=== PATIENT | male | born 1975 | race Caucasian/White ===

== ENCOUNTER 2024-04-10 17:10 | Emergency (ER) | payer BC, SELFPAY ==
[2024-04-10 17:11] VITALS: BP 144/96
--- NOTE | 2024-04-10 17:57 | ED.GENMED ---
History of Present Illness
General
Chief Complaint: Fall
Source: patient
Exam Limitations: none
Time Seen by Provider: 04/10/24 17:46
Nursing documentation reviewed up to this point in time: agreed with
Travel History
Have you had any contact with someone who has COVID-19?: No
Do you have any symptoms of coronavirus? Fever > 100 degrees, chills, cough, shortness of breath, sore throat, loss of taste or smell, muscle aches, or headache?: No
History of Present Illness
History of Present Illness:
48 yo female presents emergency room complaining of left upper quadrant abdominal pain after hitting a steel throttle handle on his tractor while getting off of it on . He has continued pain.
Past History
Past History
ED Past Medical History: GERD and Other
ED Past Surgical History: None and Orthopedic
Social History
Tobacco: Non-smoker
Alcohol: Occasional
Drug: Marijuana
Personal:
Living: with family
Employment: Employed
Family History
Family History: Other (Noncontributory)
Review of Systems
Review of Systems
Allergies reviewed?: Yes
All Other Systems: Not applicable
Constitutional: Reports no symptoms
EENT: Reports no symptoms
Respiratory: Reports no symptoms
Cardiac: Reports no symptoms
ABD/GI: Reports abdominal pain
: Reports no symptoms
Musculoskeletal: Reports no symptoms
Skin: Reports no symptoms
Neurological: Reports no symptoms
Endocrine: Reports no symptoms
Hematologic/Lymphatic: Reports no symptoms
Psychiatric: Reports no symptoms
Phy Exam
Physical Exam
Physical Exam:
Physical Exam
General: no apparent distress, not acutely ill
Neck: supple. no meningeal signs. normal posterior pharynx
Heart: s1/s2 regular rate and rhythm, no murmur. equal radial
pulses.
HEENT: Pupils equal round reactive to light, EOMI
Lungs: no acute respiratory distress. clear bilaterally
Abdomen: normal bowel sounds. Left upper quadrant abdominal tenderness, no rebound or guarding. No CVAT
Neuro: alert and oriented. no focal neurological deficits cranial nerves II through XII intact
Skin: no rash
Psychiatric: well kept. interactive and cooperative
Extremities: no edema. no calf tenderness. negative homans. good distal pulses
Course
Orders/Labs/Results
Orders:
Orders
04/10/24 17:53
IV Insert/Care/Rem.- Treatment PRN
04/10/24 17:55
CT Abd/pel W Iv Cont (trauma) Urgent
Comment:
Reason For Exam: hit in LUQ by tractor handle 5 days ago, pain
04/10/24 17:59
Complete Blood Count/With Diff Urgent
Comprehensive Metabolic Panel Urgent
Lipase Urgent
Abnormal Lab Results
04/10/24
17:59
RBC 4.35 L 10^6/uL
(4.70-6.10)
Hct 38.1 L %
(39.0-52.0)
MCH 31.3 H pg
(27.0-31.0)
BUN 21 H mg/dl
(9-20)
04/10/24 17:59
04/10/24 17:59
Vital Signs
Initial and Last Documented VS:
Initial Vital Signs
Temp Pulse Resp BP Pulse Ox
98.3 F 79 20 144/96 98
04/10/24 17:11 04/10/24 17:11 04/10/24 17:11 04/10/24 17:11 04/10/24 17:11
Last Documented Vital Signs
Temp Pulse Resp BP Pulse Ox
98.3 F 79 20 144/96 98
04/10/24 17:11 04/10/24 17:11 04/10/24 17:11 04/10/24 17:11 04/10/24 17:11
MDM/Problems Addressed
Differential Diagnosis Includes:
Solid organ injury, pneumothorax
MDM/Problems Addressed:
48-year-old male with blunt abdominal trauma, no significant injury noted. CT abdomen pelvis no acute findings. Do not suspect pneumothorax. Stable for discharge.
*Radiology
Radiology exam reviewed: radiology read reviewed (CT abdomen pelvis no acute finding)
*Pulse Oximetry
Patient hypoxic: no
*EKG
Interpreted by ED Provider?: NA
*Cork Mixer Interpretation
Rate: Cork Mixer- N/A
*Critical Care Note
Total Time (30-74mins, 75-104mins- exclusive of procedures): Not Applicable
Patient Management
Social determinants of health affecting care: Living situation
Escalation/DeEscalation of care consider admission/obs:
Admit not indicated
ED Attending Note
-
Portions of this chart may have been created with voice recognition software.� Occasional wrong word or��sound alike� substitutions may have occurred due to the inherent limitations of voice recognition software.
Discharge Plan
Departure
Patient Disposition: Home (Routine Discharge)
Date of Disposition: 04/10/24
Time of Disposition: 19:26
Patient with high blood pressure during this ER visit?: Yes
Condition: Good
Discharge Problem:
Abdominal contusion
Instructions: Blunt Abdominal Trauma ED, BLOOD PRESSURE
Prescriptions:
No Action
paroxetine HCl 10 mg Tablet
10 mg PO DAILY
Albuterol Inhaler
2 puff inhalation PRN PRN (Reason: allergies)
Medical Marijuana
1 dose inhalation PRN PRN (Reason: pain)
loratadine [Claritin] 10 mg Tablet
10 mg PO DAILY PRN (Reason: allergies)
Referrals:
Rogelio Peacock MD [Family Provider] - Call in 1-3 days for appt
Interventions
Interventions:
*Risk Screen - Suicide Last Done: 04/10/24 17:11
*General Assessment Last Done: 04/10/24 17:11
*Neglect/Abuse Screening Last Done: 04/10/24 17:11
ED- Fall Risk Assessment Last Done: 04/10/24 18:03
AR-Ycbfed-Wtsmuitvzs Assessment Last Done: 04/10/24 18:03
ED-Musculoskeletal Assessment Last Done: 04/10/24 18:03
ED- Neurological Assessment Last Done: 04/10/24 18:03
ED-Skin Assessment Last Done: 04/10/24 18:03
Discharge Date and Time
Print Language: PUERTO RICAN
[2024-04-10 18:03] VITALS: BMI 25.5
[2024-04-10 18:07] LABS: % Basophils 0.7 % (0-2); % Eosinophils 0.4 % (0-6); % Immature Granulocytes 0.2 % (0-0.5); % Monocytes 6.8 % (1.7-9.3); % Neutrophils 64.9 % (42.2-75.2); Absolute Basophils 0.1 10^3/uL (0-0.2); Absolute Lymphocytes 2.4 10^3/uL (1.2-3.4); Absolute Monocytes 0.6 10^3/uL (0.1-0.6); Absolute Neutrophils 5.8 10^3/uL (1.4-6.5); Hematocrit 38.1 % (39.0-52.0); Hemoglobin 13.6 g/dL (13.0-18.0); Mean Corp Hgb Conc. 35.7 g/dL (33.0-37.0); Mean Corpuscular Hgb 31.3 pg (27.0-31.0); Mean Corpuscular Volume 87.6 fL (80.0-94.0); Mean Platelet Volume 9.8 fL (7.4-10.4); Nucleated Red Blood Cells % 0 % (-); Platelet Count 224 10^3/uL (130-400); Red Blood Cell Count 4.35 10^6/uL (4.70-6.10); Red Cell Dist. Width 12.9 % (11.5-14.5); White Blood Cell Count 8.9 10^3/uL (4.8-10.8)
[2024-04-10 18:23] LABS: ALT (SGPT) 23 U/L (0-50); AST (SGOT) 25 U/L (17-59); Albumin 4.2 g/dl (3.5-5.0); Alkaline Phosphatase 44 U/L (38-126); Blood Urea Nitrogen 21 mg/dl (9-20); Calcium 9.8 mg/dl (8.4-10.2); Carbon Dioxide 27 mmol/L (22-30); Chloride 102 mmol/L (98-107); Estimated Creatinine Clearance 92 ml/min; Glucose 94 mg/dl (70-99); Lipase 45 U/L (23-300); Potassium 3.9 mmol/L (3.5-5.1); Sodium 136 mmol/L (135-145); Total Bilirubin 0.7 mg/dl (0.2-1.3); Total Protein 6.6 g/dl (6.3-8.2); eGFR > 60.00
== END 2024-04-10 19:51 | disposition home or self-care (01) ==
LOC: EMR 17:10
PROVIDERS: EMERGENCY PHYSICIAN Emergency Medicine; FAMILY PHYSICIAN Family Medicine
DX: S30.1XXA Contusion of abdominal wall, initial encounter (principal); X58.XXXA Exposure to other specified factors, initial encounter; K21.9 Gastro-esophageal reflux disease without esophagitis
CPT/HCPCS: 99284; 96374; 74177; 80053; 83690; 85025; Q9967

== ENCOUNTER → 2025-02-27 14:44 | Outpatient (REF) | payer BC, SELFPAY | LOC: DHSLP 14:44 | PROVIDERS: ATTENDING PHYSICIAN Family Medicine | DX: G47.33 Obstructive sleep apnea (adult) (pediatric) (principal) | CPT/HCPCS: 95800 ==

== ENCOUNTER 2025-09-06 14:26 | Inpatient (IN) | payer BC, SELFPAY ==
[2025-09-06 10:56] VITALS: BP 174/96
--- NOTE | 2025-09-06 11:55 | ED.GENMED ---
History of Present Illness
<CAESAR Rock - Last Filed: 09/06/25 13:37>
General
Chief Complaint: Skin Problem
Source: patient
Exam Limitations: none
Time Seen by Provider: 09/06/25 11:32
Nursing documentation reviewed up to this point in time: agreed with
History of Present Illness
History of Present Illness:
Patient is a 49-year-old male sent by [facility] orthopedics for admission. Patient has been doing a lot of work on his floors and kneeling and on Tuesday evening 4 days ago started having some discomfort and later that day had some swelling. He then
had some redness. He was seen by urgent care Tuesday and was placed on doxycycline. He has taken several doses of doxycycline including this morning. He was seen by [facility] physician veterinary assistant today and recommended to come to the ER for IV
antibiotics. He denies any fevers. He has had some pain to the knee but is able to bear weight.
Past History
<CAESAR Rock - Last Filed: 09/06/25 13:37>
Past History
ED Past Medical History: GERD and Other
ED Past Surgical History: None and Orthopedic
Social History
Tobacco: Non-smoker
Alcohol: Occasional
Drug: Marijuana
Personal:
Living: with family
Employment: Employed
Family History
Family History: Other (Noncontributory)
Phy Exam
<CAESAR Rock - Last Filed: 09/06/25 13:37>
General Physical Exam
General Presentation: well appearing
General age: appears stated age
General Skin: warm and dry
General Habitus: normal
General Mental: alert
General Hydration: appears well hydrated
Cardiovascular Exam
Cardiovascular Exam: regular rate/rhythm, no murmur and normal peripheral pulses
Pulmonary Exam
Pulmonary Exam: lungs clear and no respiratory distress
Neurological Exam
Neurological Exam: alert and oriented x3
Musculoskeletal Exam
Musculoskeletal Exam: other (Right lower extremity with strong pulses right to right anterior knee scattered to the lower leg as the right lateral leg distal lateral thigh; mild swelling to anterior knee however good ROM )
Skin Exam
Skin Exam: normal color and warm/dry
Psychiatric Exam
Psychiatric Exam: normal mood/affect
Course
<CAESAR Rock - Last Filed: 09/06/25 13:37>
Orders/Labs/Results
Orders:
Orders
09/06/25 12:13
IV Insert/Care/Rem.- Treatment PRN
09/06/25 12:21
Complete Blood Count/With Diff Urgent
Comprehensive Metabolic Panel Urgent
Blood Culture Q30M
RIYA Source: Blood/Venous
Specimen Description:
09/06/25 12:22
Blood Culture Q30M
RIYA Source: Blood/Venous
Specimen Description:
09/06/25 12:34
Vancomycin [Vancocin] 2,000 mg 0.9% Sodium Chloride 500 ml [Nss] 500 ml IV NOW
Abnormal Lab Results
09/06/25
12:21
WBC 10.9 H 10^3/uL
(4.8-10.8)
RBC 4.28 L 10^6/uL
(4.70-6.10)
Hgb 12.9 L g/dL
(13.0-18.0)
Hct 38.1 L %
(39.0-52.0)
Abs Immat Gran (auto) 0.1 H 10^3/uL
(0-0.05)
Absolute Neuts (auto) 8.5 H 10^3/uL
(1.4-6.5)
Absolute Monos (auto) 1.0 H 10^3/uL
(0.1-0.6)
Neutrophils % 77.9 H %
(42.2-75.2)
Lymphocytes % 11.3 L %
(20.5-51.1)
Glucose 103 H mg/dl
(70-99)
09/06/25 12:21
09/06/25 12:21
Vital Signs
Initial and Last Documented VS:
Initial Vital Signs
Temp Pulse Resp BP Pulse Ox
98.3 F 104 16 174/96 99
09/06/25 10:56 09/06/25 10:56 09/06/25 10:56 09/06/25 10:56 09/06/25 10:56
Last Documented Vital Signs
Temp Pulse Resp BP Pulse Ox
98.3 F 104 16 174/96 99
09/06/25 10:56 09/06/25 10:56 09/06/25 10:56 09/06/25 10:56 09/06/25 12:03
Design Maintenance Engineer consulted with Physician
Design Maintenance Engineer consulted with physician?: Yes
Name of Physician Consulted: bianka
<Michael Spaulding, DO - Last Filed: 09/06/25 13:14>
Orders/Labs/Results
Orders:
Orders
09/06/25 12:13
IV Insert/Care/Rem.- Treatment PRN
09/06/25 12:21
Complete Blood Count/With Diff Urgent
Comprehensive Metabolic Panel Urgent
Blood Culture Q30M
RIYA Source: Blood/Venous
Specimen Description:
09/06/25 12:22
Blood Culture Q30M
RIYA Source: Blood/Venous
Specimen Description:
09/06/25 12:34
Vancomycin [Vancocin] 2,000 mg 0.9% Sodium Chloride 500 ml [Nss] 500 ml IV NOW
Abnormal Lab Results
09/06/25
12:21
WBC 10.9 H 10^3/uL
(4.8-10.8)
RBC 4.28 L 10^6/uL
(4.70-6.10)
Hgb 12.9 L g/dL
(13.0-18.0)
Hct 38.1 L %
(39.0-52.0)
Abs Immat Gran (auto) 0.1 H 10^3/uL
(0-0.05)
Absolute Neuts (auto) 8.5 H 10^3/uL
(1.4-6.5)
Absolute Monos (auto) 1.0 H 10^3/uL
(0.1-0.6)
Neutrophils % 77.9 H %
(42.2-75.2)
Lymphocytes % 11.3 L %
(20.5-51.1)
Glucose 103 H mg/dl
(70-99)
09/06/25 12:21
09/06/25 12:21
Vital Signs
Initial and Last Documented VS:
Initial Vital Signs
Temp Pulse Resp BP Pulse Ox
98.3 F 104 16 174/96 99
09/06/25 10:56 09/06/25 10:56 09/06/25 10:56 09/06/25 10:56 09/06/25 10:56
Last Documented Vital Signs
Temp Pulse Resp BP Pulse Ox
98.3 F 104 16 174/96 99
09/06/25 10:56 09/06/25 10:56 09/06/25 10:56 09/06/25 10:56 09/06/25 12:03
<CAESAR Rock - Last Filed: 09/06/25 13:37>
MDM/Problems Addressed
Differential Diagnosis Includes:
Not limited to cellulitis, less likely septic arthritis
MDM/Problems Addressed:
Symptoms are consistent with cellulitis. Patient has very good range of motion to the right knee. Likely cellulitis and not septic arthritis. Patient is afebrile white count 10.9. Patient has been on doxycycline. Will add vancomycin however
with cellulitis would recommend admission. Case reviewed ED physician who evaluated patient.
Patient was sent by [facility] for admission and therefore I did speak with [facility] on-call Dr. Ivey to make him aware patient is being admitted.
<CAESAR Rock - Last Filed: 09/06/25 13:37>
*Pulse Oximetry
SaO2: 99
Oxygen Mode of Delivery: Room air
Patient hypoxic: no
*Critical Care Note
Total Time (30-74mins, 75-104mins- exclusive of procedures): Not Applicable
ED Attending Note
<CAESAR Rock - Last Filed: 09/06/25 13:37>
-
Portions of this chart may have been created with voice recognition software.� Occasional wrong word or��sound alike� substitutions may have occurred due to the inherent limitations of voice recognition software.
<Michael Spaulding DO - Last Filed: 09/06/25 13:14>
ED Attending Note
Patient seen and examined by attending physician: Yes
I performed the substantive portion of visit, reviewed & personally made and approve the management plan that is documented in note by myself or JAVED.: Yes
ED Attending Note:
I have seen and evaluated the patient with a [id number] encounter. I have spoken to the advance practicer provider and involved in the medical history, the physical exam, medical decision making.
Evaluation and management service: agree unless noted differently below.
Results interpretation: agree unless noted differently below.
Focused HPI: 49-year-old male presenting for evaluation of worsening redness of his right leg. Patient was seen in urgent care and started on doxycycline for presumed cellulitis and prepatellar bursitis. Patient has been on his knees when he has
been remodeling his house recently. He does acknowledge that the actual swelling and pain have improved but the redness has gotten worse
Physical exam: Swelling and tenderness to right prepatellar bursa. Cellulitic changes noted from mid thigh all the way down to mid calf overlying the knee. No micromotion tenderness of knee
Medical Decision Making: Given the worsening cellulitic changes despite antibiotic use at home, will admit for IV antibiotics. This appears to be more cellulitis and prepatellar bursitis rather than septic joint
Discharge Plan
Departure
Patient Disposition: Admit
Date of Disposition: 09/06/25
Time of Disposition: 13:26
Admit to: Med/Surg
Admit to doctor: [email or web address]
Presentation/result/management discussed w/ accepting MD/DO: Hospitalist
Patient with high blood pressure during this ER visit?: Yes
Condition: Fair
Covid-19: Not Applicable
Discharge Problem:
cellulitis right leg
Prescriptions:
No Action
paroxetine HCl 10 mg Tablet
10 mg PO DAILY
Medical Marijuana
1 dose inhalation TIDPRN PRN (Reason: pain)
albuterol sulfate 90 mcg/actuation HFA aerosol inhaler
2 puff INHALATION Q4HPRN PRN (Reason: shortness of breath)
valsartan 160 mg tablet
160 mg PO DAILY
Referrals:
Mahnaz Matta DO [Family Provider, Family Practice]
Interventions
Interventions:
*Risk Screen - Suicide Last Done: 09/06/25 10:56
*General Assessment Last Done: 09/06/25 10:56
ED-Skin Assessment Last Done: 09/06/25 12:20
Discharge Date and Time
Print Language: FRISIAN
[2025-09-06 12:20] VITALS: BMI 25.4
[2025-09-06 12:35] LABS: Hematocrit 38.1 % (39.0-52.0); Hemoglobin 12.9 g/dL (13.0-18.0); Mean Corp Hgb Conc. 33.9 g/dL (33.0-37.0); Mean Corpuscular Volume 89.0 fL (80.0-94.0); Nucleated Red Blood Cells % 0 % (-); Platelet Count 251 10^3/uL (130-400); Red Cell Dist. Width 12.4 % (11.5-14.5)
[2025-09-06 12:49] LABS: ALT (SGPT) 21 U/L (0-50); AST (SGOT) 20 U/L (17-59); Albumin 4.0 g/dl (3.5-5.0); Alkaline Phosphatase 52 U/L (38-126); Blood Urea Nitrogen 14 mg/dl (9-20); Calcium 9.2 mg/dl (8.4-10.2); Carbon Dioxide 26 mmol/L (22-30); Chloride 105 mmol/L (98-107); Estimated Creatinine Clearance 113 ml/min; Glucose 103 mg/dl (70-99); Potassium 4.2 mmol/L (3.5-5.1); Sodium 138 mmol/L (135-145); Total Protein 6.4 g/dl (6.3-8.2); eGFR > 60.00
[2025-09-06] MEDS: VANCOCIN 540 MG IV (13:17)
--- NOTE | 2025-09-06 13:27 | W.PN.UPDATE ---
Update Note
Progress Note Update
This note serves as an addendum to the H&P by PGY3
HPI�
49M Non - smoker , on Medical Marijuana , HX HTN HX GERD , sent from [facility] orthopedics
- has been doing a lot of work on his floors and kneeling
- on Tuesday evening 4 days ago started having some discomfort and later that day had some swelling and redness.
- seen by urgent care Tuesday and was placed on doxycycline.
- s/p several doses of doxycycline including this morning.
- some pain to the knee but is able to bear weight.
He was seen by [facility] physician insurance administrative assistant today and recommended to come to the ER for IV antibiotics.
He denies any fevers.
Relevant VS
Temp Pulse Resp BP Pulse Ox
98.3 F 104 16 174/96 99
09/06/25 10:56 09/06/25 10:56 09/06/25 10:56 09/06/25 10:56 09/06/25 12:03
PE
Gen: NAD, Not toxic
HEENT: anciteric
Neck: supple
Lungs:CTA
Cor: Sinus tachy
Derm & MS:
R Knee - warm , red, tender Rt knee - FROM Knee Joint
Relevant Data�
09/06/25
12:21
WBC 10.9 H
Hgb 12.9 L
MCV 89.0
09/06/25
12:21
Creatinine 0.8
eGFR > 60.00
NO PRIOR hospitalist admission:
ASSESSMENT & PLAN
Pending Rx reconciliation
Presumed Sepsis - R LLEX cellulitis + suspect subtle SIRS (HR > 90, WCC > 10)
- NEG MRSA screen in 2021
- Repeat MRSA screen
- received IV Vancomycin at ER
- will switch to IV Cefazolin 2 gm q8h
- Tylenol PRN
Hi systolic BP
Bn HTN
- cont. Valsartan daily
- Observe BP
Depression
- florentin control
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
DVT Px: LMEH
Full code
IP MS
--- NOTE | 2025-09-06 13:49 | HPS.HSE ---
Addendum entered and electronically signed by Yoandy Huggins MD 09/06/25 14:17:
I saw and examined the patient.
The PGY3 note was reviewed and I agree with the note.
Comment: refer to the update note
Original Note:
Family Physician
-
Family Physician: Mahnaz Matta
Chief Complaint
-
Right knee pain, swelling x 5 days.
History of Present Illness
49-year-old male with past medical history significant for hypertension, GERD, L5-S1 fusion, bilateral hip arthritis presents to the emergency room for evaluation of right knee swelling and pain. His right knee pain and swelling started on Tuesday
in the a.m., patient reports that he has been doing a lot of floor work in his house lately by kneeling down and initially his pain, swelling and discomfort was localized only to his knee. On Tuesday morning patient was not able to bear any weight
on his leg which prompted an urgent care visit. Patient was diagnosed with cellulitis in the urgent care, was given doxycycline and currently patient is s/p 7 doses. He is weightbearing improved subsequently into the following days but his redness
and swelling extended beyond his knee into his calf and upper thigh. [id number]-tek-qtufbly ibuprofen was of not much help which prompted the patient to visit his orthopedics who recommended the patient to go to the ER.
He denies having fevers, chills, sick contacts, history of diabetes or family history of diabetes.
Medical History
Past Medical History
Past Medical History: Reports GERD, HTN and Other (Osteoarthritis of bilateral hips.)
Past Surgical History: Reports Other (L5-S1 fusion, tendon repairs in the elbows and hands)
Social History
Tobacco: Non-smoker
Alcohol: Occasional (About 2 glasses of wine/cocktail a week.)
Drug: Marijuana (Medical marijuana for pain.)
Personal:
Living: With Family
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
Family History
Family History: Not pertinent
Allergies / Home Medications
Allergies reflects when Allergies were last updated in [employer].
Home Medications with original date entered in [employer]
Allergy/Medication List:
Allergies
Allergy/AdvReac Type Severity Reaction Status Date / Time
No Known Drug Allergies Allergy Unknown Verified 09/06/25 10:56
Home Medications
Medical Marijuana 1 dose inhalation TIDPRN PRN pain 09/07/22
paroxetine HCl 10 mg tablet 10 mg PO DAILY Depression 09/07/22
albuterol sulfate 90 mcg/actuation aerosol inhaler 2 puff inhalation Q4HPRN PRN shortness of breath 09/06/25
valsartan 160 mg tablet 160 mg PO DAILY daily 09/06/25
Review of Systems
-
Constitutional: Reports No Symptoms
EENT: Reports No Symptoms
Respiratory: Reports No Symptoms
Cardiac: Reports No Symptoms
Abdomen/GI: Reports No Symptoms
: Reports No Symptoms
Musculoskeletal: Reports Joint Pain, Joint Swelling, Edema and Other (Redness and hotness.)
Skin: Reports Other (Redness extending into the right thigh and right calf.)
Neurological: Reports No Symptoms
Endocrine: Reports No Symptoms
Hematologic/Lymphatic: Reports No Symptoms
Psych: Reports No Symptoms
Physical Exam
Vital Signs
Vital Signs
Temp Pulse Resp BP Pulse Ox
98.3 F 104 16 174/96 99
09/06/25 10:56 09/06/25 10:56 09/06/25 10:56 09/06/25 10:56 09/06/25 12:03
Physical Exam
General: Comfortable and Conversant
HEENT: Moist mucous membranes and PERRLA
Respiratory: Clear; No Wheezes, Rales, Rhonchi or Crackles
Cardiac: S1/S2 and Regular Rhythm; No Murmur, Rub or Gallop
GI: Soft, Non Tender, Non Distended and Normal Bowel Sounds
Genito-urinary: Deferred by me
Musculoskeletal: No Clubbing, No Cyanosis, Edema, Right Lower Extremity (Erythema, local rise of temperature, edema noted in the right knee extending about 4 cm superiorly and 15 to 18 cm inferiorly.) and Other (Range of motion in the right
knee-limited flexion and internal rotation primarily from pain, both active and passive.)
Skin: Warm
Neuro: AO x 3 and No Motor Deficits
Psych: Calm
Laboratory Results
-
09/06/25 12:21
09/06/25 12:21
Laboratory Results
Total Bilirubin 0.6 mg/dl (0.2-1.3) 09/06/25 12:21
AST 20 U/L (17-59) 09/06/25 12:21
ALT 21 U/L (0-50) 09/06/25 12:21
Alkaline Phosphatase 52 U/L (38-126) 09/06/25 12:21
Data Reviewed
-
Lab Data: Labs Reviewed by me, Discussed with Physician and Discussed with Patient
Impression/Plan
-
IMPRESSION: 49-year-old male with PMHx significant for hypertension, GERD presents to the ER for evaluation of redness and swelling in his right knee. He is diagnosed to be in sepsis secondary to cellulitis.
PLAN:
# Sepsis -
secondary to cellulitis
Tachycardia, hypertension, elevated WBC count, afebrile.
S/p 7 doses of doxycycline in the outpatient.
S/p IV fluids, vancomycin in the ER.
Switch to Ancef, repeat MRSA swab.
Monitor for improvement-WBC count as well as the cellulitis.
# Anxiety/depression-
Continue paroxetine.
# Chronic pain-
Continue medical marijuana.
# DVT prophylaxis-
Lovenox.
# Diet-
Cholesterol-lowering diet.
# CODE STATUS-
Full code.
[2025-09-06 13:54] VITALS: BP 134/85
[2025-09-06 15:14] VITALS: BMI 25.0
[2025-09-06 15:38] VITALS: BP 142/88
--- NOTE | 2025-09-06 15:52 | PTOTSP ---
Therapist spoke with the patient, who notes he is independent with mobility, and pain is actually improved since Tuesday, able to weightbear without difficulty. Patient admits he needs to use knee pads more regularly when working and plans to use
them moving forward. Patient denies the need for PT at this time and is aware our services are available if needed. PT will sign off.
--- NOTE | 2025-09-06 15:53 | PTCARENOTE ---
Received pt from ER via stretcher, accompanied by ER staff. Pt AAO x3, JETER well, ambulatory to room, no c/o weakness. VSS. Pt has +1 edema of Rt knee/lower leg with reddened skin. On room air- pulse ox 97%, no SOB noted. Abd soft, rounded, to
start chol lowering diet. Pt voided in BR upon arrival to room. Rt knee/lower leg reddened, no c/odsicomfort; RLE elevated on pillow. Oriented to 4East, currently resting comfortably. Will continue to monitor.
[2025-09-06] MEDS: FLUSH (NSS) 1 FLUSH IV (16:13)
[2025-09-06] MEDS: ANCEF 10 IV (16:13)
[2025-09-06] MEDS: LOVENOX 40 MG SC (18:09)
[2025-09-06 23:50] VITALS: BP 138/80
[2025-09-07] MEDS: FLUSH (NSS) 1 FLUSH IV (00:18)
[2025-09-07] MEDS: ANCEF 10 IV ×3 (00:18→17:18)
[2025-09-07 07:30] VITALS: BP 126/78
[2025-09-07] MEDS: PAXIL 10 MG PO (08:27)
[2025-09-07] MEDS: DIOVAN 160 MG PO (08:27)
[2025-09-07] MEDS: FLUSH (NSS) 2 FLUSH IV (08:28)
[2025-09-07 08:55] LABS: Hematocrit 41.0 % (39.0-52.0); Hemoglobin 13.4 g/dL (13.0-18.0); Mean Corp Hgb Conc. 32.7 g/dL (33.0-37.0); Mean Corpuscular Volume 91.3 fL (80.0-94.0); Nucleated Red Blood Cells % 0 % (-); Platelet Count 274 10^3/uL (130-400); Red Cell Dist. Width 12.3 % (11.5-14.5)
[2025-09-07 09:24] LABS: Blood Urea Nitrogen 14 mg/dl (9-20); Calcium 9.4 mg/dl (8.4-10.2); Carbon Dioxide 28 mmol/L (22-30); Chloride 103 mmol/L (98-107); Estimated Creatinine Clearance 113 ml/min; Glucose 94 mg/dl (70-99); Potassium 4.5 mmol/L (3.5-5.1); Sodium 138 mmol/L (135-145); eGFR > 60.00
--- NOTE | 2025-09-07 13:11 | W.PN.UPDATE ---
Update Note
Progress Note Update
HPI: 49-year-old male with PMH significant for hypertension, GERD presented to the ER for evaluation of redness and swelling in his right knee. He was admitted for R knee cellulitis.
A/P:
# Sepsis POA secondary to RLE cellulitis
s/p 7 doses of doxycycline outpatient.
S/p IV fluids, vancomycin in the ER.
Cont current Ancef
RLE redness has improved
# Anxiety/depression
Continue paroxetine.
# Chronic pain
Continue medical marijuana.
DVT prophylaxis- Lovenox SQ .
CODE STATUS- Full code.
--- NOTE | 2025-09-07 13:40 | CM ---
Initial assessment completed with patient who lives with his and 16 y/o son in a 2 story home with no basement, B/B on , 1 step to enter. DELIVERY SPECIALIST patient was independent in ADL's and ambulation, drives, works as a real estate services administrator. Does have crutches
and a SPC in the home. No in-home services. No HC-POA. No VA benefits. No psychiatric hospitalizations. PCP is Dr. Mahnaz Matta. Pharmacy is [facility] on [phone] in [place]. Discharge POC: Anticipate home with no needs. v
[2025-09-07] MEDS: TYLENOL 650 MG PO (13:53)
--- NOTE | 2025-09-07 14:15 | W.PN.HOSP.TC ---
Today's Communication/Plan
-
Continue Ancef
Assessment / Plan
Assessment / Plan
Assessment- 49-year-old male with PMHx significant for hypertension, GERD presents to the ER for evaluation of redness and swelling in his right knee. He is diagnosed to be in sepsis secondary to cellulitis.
Plan-
#Sepsis-
Resolved
Secondary to cellulitis.
#Cellulitis-
Continue Ancef high-dose
MRSA nasal swab negative
WBC count became normal
# Anxiety/depression
continue paroxetine
# Anxiety/depression-
Continue paroxetine.
# Chronic pain-
Continue medical marijuana.
# DVT prophylaxis-
Lovenox.
# Diet-
Cholesterol-lowering diet.
# CODE STATUS-
Full code.
Anticipated Discharge: Today
Subjective/Interval History
-
Date of Service: September 07, 2025
His symptoms are improving, he has minimal redness, and pain.
Objective Data
-
Labs:
Laboratory Results
09/07/25
07:47
WBC 8.4
Hgb 13.4
Hct 41.0
Plt Count 274
Sodium 138
Potassium 4.5
Chloride 103
Carbon Dioxide 28
BUN 14
Creatinine 0.8
Glucose 94
Calcium 9.4
Vital Signs:
Vital Signs
Temp Pulse Resp BP Pulse Ox
98.2 F 68 16 126/78 97
09/07/25 07:30 09/07/25 08:27 09/07/25 07:30 09/07/25 08:27 09/07/25 09:00
I&O
09/06/25 09/07/25 09/08/25
06:59 06:59 06:59
Intake Total 240 / 240
Balance 240 / 240
Review of Systems
-
History Source: Patient
Constitutional: Reports No Symptoms
EENT: Reports No Symptoms Reported
Respiratory: Reports No Symptoms
Abdomen/GI: Reports No Symptoms
Genitourinary: Reports No Symptoms
Musculoskeletal: Reports Joint Pain (Improving)
Skin: Reports Other (Redness, pain, swelling improving)
Neuro: Reports No Symptoms
Endocrine: Reports No Symptoms
Hematologic / Lymphatic: Reports No Symptoms
Allergy / Immunology: Reports No Symptoms
Physical Exam
-
General: No Apparent Distress and Comfortable
HEENT: Atraumatic and Moist Mucous Membranes
Respiratory: Clear to Auscultation; Negative Wheezes, Rales, Rhonchi or Crackles
Cardiac: Regular Rhythm and S1/S2; Negative Murmur, Rub or Gallop
GI: Soft, Nontender, Nondistended and Normal Bowel Sounds
Musculoskeletal: No Clubbing, No Cyanosis, No Edema and Other ((Erythema, local rise of temperature, edema noted in the right knee extending about 2 cm inferiorly)
Skin: Warm
Neuro: AO x 3
Data Reviewed
-
Labs: Labs Reviewed by me, Discussed with Physician and Discussed with Patient
[2025-09-07 15:27] VITALS: BP 153/89
[2025-09-07] MEDS: LOVENOX 40 MG SC (17:17)
[2025-09-07 23:20] VITALS: BP 128/80
[2025-09-08] MEDS: ANCEF 10 IV ×2 (00:24→09:23)
[2025-09-08] MEDS: FLUSH (NSS) 1 FLUSH IV (00:24)
[2025-09-08 08:00] VITALS: BP 135/89
--- NOTE | 2025-09-08 09:14 | W.PN.UPDATE ---
Update Note
Progress Note Update
I saw and evaluated the patient with the residents.
HPI: 49-year-old male with PMH significant for hypertension, GERD presented to the ER for evaluation of redness and swelling in his right knee. He was admitted for R knee cellulitis.
A/P:
# Sepsis POA secondary to RLE cellulitis
s/p 7 doses of doxycycline outpatient.
S/p IV fluids, vancomycin in the ER.
Ancef -> PO Keflex at the time of discharge for a total 14 days
RLE redness has significantly improved
# Anxiety/depression
Continue paroxetine.
# Chronic pain
Continue medical marijuana.
DVT prophylaxis- Lovenox SQ .
CODE STATUS- Full code.
[2025-09-08] MEDS: DIOVAN 160 MG PO (09:22)
[2025-09-08] MEDS: PAXIL 10 MG PO (09:22)
[2025-09-08] MEDS: FLUSH (NSS) 2 FLUSH IV (09:23)
--- NOTE | 2025-09-08 11:34 | W.PN.HOSP.TC ---
Today's Communication/Plan
-
Switch to oral Keflex, plan for discharge.
Assessment / Plan
Assessment / Plan
Assessment- 49-year-old male with PMHx significant for hypertension, GERD presents to the ER for evaluation of redness and swelling in his right knee. He is diagnosed to be in sepsis secondary to cellulitis.
Plan-
#Sepsis-
Resolved
Secondary to cellulitis.
#Cellulitis-
Switch to oral Keflex.
MRSA nasal swab negative
WBC count became normal
# Anxiety/depression
continue paroxetine
# Anxiety/depression-
Continue paroxetine.
# Chronic pain-
Continue medical marijuana.
# DVT prophylaxis-
Lovenox.
# Diet-
Cholesterol-lowering diet.
# CODE STATUS-
Full code.
Anticipated Discharge: Today
Subjective/Interval History
-
Date of Service: September 08, 2025
No complaints.
Objective Data
-
Vital Signs:
Vital Signs
Temp Pulse Resp BP Pulse Ox
97.8 F 94 16 135/89 97
09/08/25 08:00 09/08/25 09:22 09/08/25 08:00 09/08/25 09:22 09/08/25 09:00
I&O
09/07/25 09/08/25 09/09/25
06:59 06:59 06:59
Intake Total 240 / 240 960 / 960
Balance 240 / 240 960 / 960
Review of Systems
-
History Source: Patient
All other systems: Reviewed and negative
Physical Exam
-
General: Comfortable
HEENT: Moist Mucous Membranes
Respiratory: Clear to Auscultation; Negative Wheezes, Rales, Rhonchi or Crackles
Cardiac: Regular Rhythm and S1/S2; Negative Murmur, Rub or Gallop
GI: Soft, Nontender, Nondistended and Normal Bowel Sounds
Musculoskeletal: No Clubbing, No Cyanosis, No Edema and Other (Local rise of temperature, erythema, edema of the right knee resolved.)
Neuro: AO x 3
Psych: Calm
--- NOTE | 2025-09-08 12:16 | W.DCSUMMARY ---
Documented by User: Arti Smyth MD, Resident 09/08/25 12:20
Discharge Summary
Discharge Data
Date of Admission: 09/06/25
Date of Discharge: 09/08/25
-
Pending Results: No
Hospital Course
Assessment - 49-year-old male with PMHx significant for hypertension, GERD presents to the ER for evaluation of redness and swelling in his right knee. He is diagnosed to be in sepsis secondary to cellulitis.
Hospital course -during his 2-day course in the hospital, he was treated with high-dose Ancef IV resulting in resolution of his leukocytosis and lactate levels. His erythema and edema and local rise of temperature in the right knee significantly
improved, and patient was discharged with 12 more days of oral Keflex 4 times daily.
Discharge Plan
-
Patient Disposition: Home (Routine Discharge)
Discharge Diagnosis/Procedures: Cellulitis of right leg surrounding the knee area
Condition: Good
Diet: No restrictions
Activity: No restrictions
Driving Restrictions: As prior to admission
Bathing Restrictions: None
Instructions: Cellulitis (Skin Infection), Adult (DC)
Referrals:
Mahnaz Matta DO [Family Provider, Family Practice]
Prescriptions:
New
cephalexin 500 mg capsule
500 mg PO Q6H 12 Days Qty: 48 0RF
Continued
paroxetine HCl 10 mg Tablet
10 mg PO DAILY
Medical Marijuana
1 dose inhalation TIDPRN PRN (Reason: pain)
albuterol sulfate 90 mcg/actuation HFA aerosol inhaler
2 puff INHALATION Q4HPRN PRN (Reason: shortness of breath)
valsartan 160 mg tablet
160 mg PO DAILY
Discharge Orders:
Discharge Patient (As Directed); Ordered 09/08/25
Ordered By: Arti Smyth
Discharge Date and Time
Print Language: COMORAN

Documented by User: Sue Lorenzana MD 09/08/25 12:57
Discharge Summary
Discharge Data
Date of Admission: 09/06/25
Date of Discharge: 09/08/25
Hospital Course
Assessment - 49-year-old male with PMHx significant for hypertension, GERD presented to the ER for evaluation of redness and swelling around his right knee. He is diagnosed to be in sepsis secondary to cellulitis.
Hospital course - He was treated with high-dose Ancef IV with improvement of his R knee erythema and pain. The patient was discharged with 12 more days (total 14 days) of oral Keflex at 500 mg 4 times daily.
Discharge Plan
-
Patient Disposition: Home (Routine Discharge)
Discharge Diagnosis/Procedures: Cellulitis of right leg surrounding the knee area
Condition: Good
Diet: No restrictions
Activity: No restrictions
Driving Restrictions: As prior to admission
Bathing Restrictions: None
Instructions: Cellulitis (Skin Infection), Adult (DC)
Referrals:
Mahnaz Matta DO [Family Provider, Family Practice]
Prescriptions:
New
cephalexin 500 mg capsule
500 mg PO Q6H 12 Days Qty: 48 0RF
Continued
paroxetine HCl 10 mg Tablet
10 mg PO DAILY
Medical Marijuana
1 dose inhalation TIDPRN PRN (Reason: pain)
albuterol sulfate 90 mcg/actuation HFA aerosol inhaler
2 puff INHALATION Q4HPRN PRN (Reason: shortness of breath)
valsartan 160 mg tablet
160 mg PO DAILY
Discharge Orders:
Discharge Patient (As Directed); Ordered 09/08/25
Ordered By: Arti Smyth
Discharge Date and Time
Print Language: COMORAN
--- NOTE | 2025-09-08 13:31 | CM ---
Patient has been medically cleared for discharge to home with no additional skilled services. Patient arranged for transport home.
[2025-09-08 13:48] VITALS: BP 136/90
== END 2025-09-08 14:06 | disposition home or self-care (01) | DRG 872 ==
LOC: 4 EAST ACU 14:26
PROVIDERS: Nurse Practitioner; Student in an Organized Health Care Education/Training Program; ADMITTING PHYSICIAN Internal Medicine; ATTENDING PHYSICIAN Internal Medicine; EMERGENCY PHYSICIAN Student in an Organized Health Care Education/Training Program; FAMILY PHYSICIAN Family Medicine
DX: A41.9 Sepsis, unspecified organism (principal); L03.115 Cellulitis of right lower limb; F32.A Depression, unspecified; I10 Essential (primary) hypertension; G89.29 Other chronic pain; F41.9 Anxiety disorder, unspecified; K21.9 Gastro-esophageal reflux disease without esophagitis; Z79.899 Other long term (current) drug therapy
CPT/HCPCS: 80048; 80053; 85025; 87040; 87070; 96365; 99284